=== PATIENT | female | born 1950 | race Caucasian/White ===

== ENCOUNTER 2017-06-18 23:19 | Emergency (ER) | payer SELFPAY ==
[~2017-06-18] VITALS: Ht 165.1 cm; Wt 82.0 kg
[~2017-06-18 23:19] MED LIST: ATEN50 PO; HYDR-3533 PO; NAPR500 PO
[2017-06-18 23:20] VITALS: BP 230/104; PULSE 74; RESP 16; TEMP 98.5; O2SAT 99
[2017-06-18 23:30] VITALS: BP 195/101; PULSE 70; RESP 16; O2SAT 100
[2017-06-19] MEDS ORDERED: oxyCODONE/ACETAMINOPHEN 5 MG/325 MG TAB PO ONE
[2017-06-19] MEDS ORDERED: BUPIVACAINE/EPINEPHRINE 0.25% PF 10 ML VIAL INFIL ONE
[2017-06-19 00:09] VITALS: BP 185/92; PULSE 70; RESP 16; O2SAT 98
[2017-06-19] MEDS ORDERED: ATENOLOL 50 MG TAB PO ONE (00:15)
[2017-06-19] MEDS ORDERED: BUPIVACAINE/EPINEPHRINE 0.25% 50 ML VIAL INFIL ONE (00:30)
--- NOTE | 2017-06-19 00:34 | PD ---
HPI Chief Complaint: Oral / Dental Pain or Problem Time Seen by Provider: 23:40 Travel History International Travel<30 days: No Contact w/Intl Traveler<30days: No Traveled to known affect area: No History of Present Illness HPI 67yo F with PMH of HTN presents to the ED with c/o tooth pain that has been getting worst over 1 month. States pain is radiating up her right ear. States she had a tooth extraction by a dentist in [place] a few months ago. Denies any fever, drooling, chest pain, sob, n/v, abdominal pain, focal weakness or numbness. PFSH Past Medical History Hypertension: Yes Immunizations Current: Yes ?: Not Social History Alcohol Use: No Tobacco Use: No Substance Use: No Allergies-Medications (Allergen,Severity, Reaction): Coded Allergies: penicillin G (Unverified Allergy, Severe, Anaphylaxis, 06/18/17) rabies immune globulin (Unverified Allergy, Severe, 06/18/17) rabies vaccine, human diploid cell (Unverified Allergy, Severe, 06/18/17) procaine (Unverified Allergy, Intermediate, Itching, 06/18/17) Reported Meds & Prescriptions Reported Meds & Active Scripts Active Percocet (Oxycodone-Acetaminophen) 5-325 mg Tab 1 Tab PO Q6H PRN Naprosyn (Naproxen) 500 Mg Tab 500 Mg PO BID 7 Days Lortab 5 mg/325 mg (Hydrocodone/Acetaminophen 5 mg/325 mg) 1 Tab 1 Tab PO Q6H PRN Reported Tenormin 50 Mg Tab (Atenolol) 50 Mg Tab 50 Mg PO TID Review of Systems Except as stated in HPI: all other systems reviewed are Neg Physical Exam Narrative GENERAL: 67yo F in moderate distress. SKIN: Focused skin assessment warm/dry. HEAD: Atraumatic. Normocephalic. EYES: Pupils equal and round. No scleral icterus. No injection or drainage. ENT: Mouth: +TTP tooth #31. Pt has multiple missing tooth that was extracted in right lower mouth. No periapical fluctuance. Uvula midline. Patent airway. No elevation of tongue. TM wnl bilaterally. NECK: Trachea midline. No JVD. CARDIOVASCULAR: Regular rate and rhythm. No murmur appreciated. RESPIRATORY: No accessory muscle use. Clear to auscultation. Breath sounds equal bilaterally. GASTROINTESTINAL: Abdomen soft, non-tender, nondistended. Hepatic and splenic margins not palpable. MUSCULOSKELETAL: No obvious deformities. No clubbing. No cyanosis. No edema. NEUROLOGICAL: Awake and alert. No obvious cranial nerve deficits. Motor grossly within normal limits. Normal speech. PSYCHIATRIC: Appropriate mood and affect; insight and judgment normal. Data Data Last Documented VS Vital Signs Date Time Temp Pulse Resp B/P (MAP) Pulse Ox O2 Delivery O2 Flow Rate FiO2 06/19/17 01:11 68 15 175/84 (114) 99 06/19/17 00:41 Room Air 06/18/17 23:20 98.5 Orders Orders Oxycodone-Acetamin 5-325 Mg (Percocet (06/19/17 00:00) Atenolol (Tenormin) (06/19/17 00:15) Bupivacaine-Epineph 0.25% Inj (Sensorcai (06/19/17 00:30) MDM Medical Decision Making Medical Screen Exam Complete: Yes Emergency Medical Condition: Yes Differential Diagnosis Dental pain vs. dental caries vs. dental abscess Narrative Course 67yo F with c/o dental pain for 1 month but here today because son said she is unable to sleep due to pain so he cant sleep as well. Pt is otherwise well appearing with no fever, drooling or any other complaints. Blood pressure was initially elevated but she did not take her blood pressure medication atenolol and was going to take it herself. I gave her atenolol 50mg PO and BP improved to 171/87. Pt given percocet and pain has improved. Initially was going to do inferior alveolar block with bupivacaine but pt states pain has improved and does not want injection. Pt is to follow up with dentist tomorrow. Return precautions given. Diagnosis Primary Impression: Dental caries Patient Instructions: General Instructions, Narcotic given in the ED Departure Forms: Tests/Procedures Additional Instructions: Please follow up with dentist tomorrow. Return to the ED if symptoms worsen. Please follow up with your primary care physician regarding your blood pressure control. Med/Other Pt SpecificInfo: Prescription(s) given Scripts Oxycodone-Acetaminophen (Percocet) 5-325 mg Tab 1 TAB PO Q6H Y for PAIN, #10 TAB 0 Refills Prov: Ann-Marie Ramirez 06/19/17 Disposition: 01 DISCHARGE HOME Condition: Stable RamirezDorys poncefaby MARQUEZ Jun 19, 2017 00:33
[2017-06-19 00:41] VITALS: BP 171/87; PULSE 78; RESP 16; O2SAT 98
[2017-06-19] MEDS ORDERED: PERC5TAB12 PO (01:08)
[2017-06-19 01:11] VITALS: BP 175/84
== END 2017-06-19 01:25 | disposition home or self-care (01) ==
LOC: NEPC 23:19
DX: K02.9 Dental caries, unspecified (principal); I10 Essential (primary) hypertension
CPT/HCPCS: 99283